=== PATIENT | female | born 1950 | race Caucasian/White ===

== ENCOUNTER → 2020-08-16 | Outpatient (CLI) | payer MEDICARE, BC | LOC: KOH-I 16:21 | DX: R06.02 Shortness of breath (principal) | CPT/HCPCS: 71046 ==

== ENCOUNTER → 2020-10-12 | Outpatient (CLI) | payer MEDICARE, BC | LOC: HEART 5 09:09 | DX: R06.02 Shortness of breath (principal) | CPT/HCPCS: 94060; 94729 ==

== ENCOUNTER → 2021-02-12 | Outpatient (CLI) | payer MEDICARE, BC ==
[~2021-02-12] VITALS: Ht 170.2 cm; Wt 82.1 kg
== END ==
LOC: OPSV 01-12 13:00
DX: M81.0 Age-related osteoporosis without current pathological fracture (principal)
CPT/HCPCS: 96365; J3489

== ENCOUNTER → 2021-07-18 | Outpatient (CLI) | payer MEDICARE, BC | LOC: MRI 15:00 → US 15:00 → MRI 15:04 | DX: I10 Essential (primary) hypertension (principal); E78.5 Hyperlipidemia, unspecified; G45.9 Transient cerebral ischemic attack, unspecified; R41.3 Other amnesia; R11.0 Nausea; B34.9 Viral infection, unspecified; U09.9 Post COVID-19 condition, unspecified; R41.89 Other symptoms and signs involving cognitive functions and awareness; I49.9 Cardiac arrhythmia, unspecified | CPT/HCPCS: 36415; 70553; 82565; 84520; 93880; A9577 ==

== ENCOUNTER → 2021-08-13 | Outpatient (CLI) | payer MEDICARE, BC | LOC: CT 13:05 | DX: G45.9 Transient cerebral ischemic attack, unspecified (principal); I65.29 Occlusion and stenosis of unspecified carotid artery | CPT/HCPCS: 70498; Q9967 ==

== ENCOUNTER → 2021-09-04 | Outpatient (CLI) | payer MEDICARE, BC | LOC: LAB 17:11 | DX: U07.1 COVID-19 (principal) | CPT/HCPCS: U0002 ==

== ENCOUNTER → 2021-09-05 | Outpatient (CLI) | payer MEDICARE, BC ==
[~2021-09-05] VITALS: Ht 172.7 cm; Wt 79.4 kg
== END ==
LOC: EROP 11:32
DX: U07.1 COVID-19 (principal); Z23 Encounter for immunization
CPT/HCPCS: M0222; Q0222